=== PATIENT | male | born 1960 | race Caucasian/White ===

== ENCOUNTER 2017-07-02 09:12 | Emergency (ER) | payer OTHER ==
[~2017-07-02] VITALS: Ht 180.3 cm; Wt 70.5 kg
[~2017-07-02 09:12] MED LIST: BLOOD PRESSURE MEDICATION; CETI10CA PO; DIABETIC PILL PO; NAPH15DR13 OP; SODI75SP NASAL
[2017-07-02 09:15] VITALS: Ht 180.3 cm; Wt 70.5 kg
[2017-07-02] MEDS ORDERED: IPRATROPIUM (NEB) 0.5 MG/2.5 ML AMP NEB STA (09:35)
[2017-07-02] MEDS ORDERED: ALBUTEROL 0.083% (NEB) 2.5 MG/3 ML AMP NEB STA (09:35)
--- NOTE | 2017-07-02 09:54 | ERD ---
ER Documentation Chief Complaint Date/Time DATE: 07/02/17 TIME: 09:48 Chief Complaint cough x 1 week, sob x this am hx asthma HPI This is a 56-year-old male presents to the emergency department today complaining of a cough for the past week. States that he feels shortness of breath and tightness in his chest. He has tried [id number] medications as well as his Ventolin inhaler for his asthma. Denies any fevers or chills, sore throat ROS All systems reviewed and are negative except as per history of present illness. Medications Home Meds Active Scripts Cetirizine Hcl* (Zyrtec*) 10 Mg Capsule, 10 MG PO DAILY, #10 TAB.CHEW Prov:PASCUAL BERGERON PA-C 07/02/17 Azithromycin* (Zithromax*) 250 Mg Tablet, 250 MG PO .ZPACK DIRECTED, #6 TAB TAKE 500 MG (2 TABS) THE FIRST DAY THEN 250 MG (1 TAB) DAYS 2-5 Prov:PASCUAL BERGERON PA-C 07/02/17 Albuterol Sulfate* (Ventolin HFA*) 18 Gm Hfa.aer.ad, 2 PUFF INHALATION Q4H, #1 INHALER Prov:PASCUAL BERGERON PA-C 07/02/17 Cetirizine Hcl* (Zyrtec*) 10 Mg Capsule, 10 MG PO DAILY, #10 TAB.CHEW Prov:ASHLEY CORTES NP 03/23/16 Naphazoline Hcl/Pheniramine (EYE ALLERGY RELIEF DROPS) 15 Ml Drops, 15 ML OP Q2HWA Y for ITCHING for 10 Days, BOTTLE Prov:ASHLEY CORTES NP 03/23/16 Sodium Chloride/Sod Bicarb (Nasa Mist Saline [place]) 75 Ml [place], 2 SPRAYS NASAL BID, #1 BOTTLE Prov:ASHLEY CORTES NP 03/23/16 Reported Medications [Diabetic Pill] No Conflict Check, PO 10/27/13 [Blood Pressure Medication] No Conflict Check 10/01/12 Allergies Allergies: Coded Allergies: No Known Allergy (Unverified , 07/02/17) PMhx/Soc History of Surgery: Yes (CHOLECYSTECTOMY) Anesthesia Reaction: No Hx Neurological Disorder: No Hx Respiratory Disorders: Yes (ASTHMA) Hx Cardiac Disorders: Yes (HTN) Hx Psychiatric Problems: No Hx Miscellaneous Medical Probl: No Hx Alcohol Use: No Hx Substance Use: No Hx Tobacco Use: No Smoking Status: Never smoker Physical Exam Vitals Vital Signs Date Time Temp Pulse Resp B/P Pulse Ox O2 Delivery O2 Flow Rate FiO2 07/02/17 09:54 78 18 96 21 07/02/17 09:15 98.0 74 22 159/83 100 Physical Exam Const: Pleasant, no acute distress Head: Atraumatic Eyes: Normal Conjunctiva ENT: Normal External Ears, Nose and Mouth. Neck: Full range of motion..~ No meningismus. Resp: Coarse breath sounds right-sided lung shirley. No absent breath sounds. Cardio: Regular rate and rhythm, no murmurs Abd: Soft, non tender, non distended. Normal bowel sounds Skin: No petechiae or rashes Back: No midline or flank tenderness Ext: No cyanosis, or edema Neur: Awake and alert Psych: Normal Mood and Affect Results 24 hrs Current Medications Medications (Trade) Dose Ordered Sig/Cody Route PRN Reason Start Time Stop Time Status Last Admin Dose Admin Albuterol (Proventil 0.083% (Neb)) 5 mg ONCE STAT NEB 07/02/17 09:35 07/02/17 09:37 DC 07/02/17 09:53 Ipratropium [place] (Atrovent 0.02% (Neb)) 0.5 mg ONCE STAT NEB 07/02/17 09:35 07/02/17 09:37 DC 07/02/17 09:53 Procedures/MDM This 56-year-old male who presents the emergency department today complaining of cough for the past week and some shortness of breath. Patient does have a history of asthma. Patient is afebrile and otherwise well-appearing. His oxygen saturation 100%. His respirations are 22 and he is not tachycardic. Patient did have some coarse breath sounds on his right side of lung shirley and therefore did give the patient a breathing treatment. Patient reported feeling better after breathing treatment. Given patient's complaint of chest pressure did obtain an EKG EKG read and interpreted by Dr. Cleary. Rate [address] elevation. No QT prolongation. Normal sinus rhythm. Low suspicion for acute [place], PE, pericarditis Low suspicion for PE, abscess, pleural effusion, pneumothorax. Patient was given a refill on his Ventolin inhaler. He was also given a prescription for Zyrtec.. He will also be given a prescription for azithromycin to treat for possible bronchitis as well as patient has tried over- the-counter medications. This would also cover patient for pneumonia. Patient does have history of diabetes and hypertension. At this time the patient is stable for discharge and outpatient management. Patient should follow up with their PCP in the next 1-2 days. They may return to the emergency department sooner for any persistent or worsening of symptoms. Patient understood and agreed with the plan. Departure Diagnosis: Primary Impression: Cough Additional Impression: SOB (shortness of breath) Condition: Fair PASCUAL BERGERON PA-C Jul 02, 2017 09:54
[2017-07-02] MEDS ORDERED: ALBU18HF INHALATION (10:57)
[2017-07-02] MEDS ORDERED: AZIT250T94 PO (10:57)
[2017-07-02] MEDS ORDERED: CETI10CA PO (10:58)
== END 2017-07-02 11:08 | disposition home or self-care (01) ==
LOC: FTE 09:12
DX: R05 Cough (principal); R06.02 Shortness of breath; I10 Essential (primary) hypertension; J45.909 Unspecified asthma, uncomplicated
CPT/HCPCS: 93005; 94664

== ENCOUNTER 2018-01-02 06:05 | Day surgery (SDC) | END 2018-01-02 11:02 | disposition home or self-care (01) ==